=== PATIENT | female | born 1970 | race Caucasian/White ===

== ENCOUNTER → 2017-07-14 11:26 | Outpatient (CLI) | payer BC, SELFPAY ==
[2017-07-14 13:00] LABS: Thyroid Stim Hormone (TSH) 1.43 uIU/mL (0.358-3.74)
== END ==
PROVIDERS: Visit Provider Obstetrics & Gynecology
DX: N93.9 Abnormal uterine and vaginal bleeding, unspecified (principal)
CPT/HCPCS: 36415; 84443

== ENCOUNTER → 2017-07-18 15:29 | Outpatient (CLI) | payer BC, SELFPAY ==
--- NOTE | 2017-07-18 15:34 | US_ITS ---
STUDY: ULTRASOUND TRANSVAGINAL CLINICAL: Female, 47 years old. Bleeding. TECHNIQUE: Transabdominal and Transvaginal COMPARISON: None. FINDINGS: Normal uterine size measuring 10.4 x 6.5 x 4.7 cm in maximal craniocaudal dimension. There are no myometrial masses. Normal endometrial thickness measuring 6 mm. Endometrial echoes are hyperechoic. There are no endometrial masses, and there is no fluid in the endometrial cavity. Nabothian cyst of the uterine cervix. Normal right ovary, measuring 3.2 x 2.4 x 1.5 cm. There are multiple follicles without a dominant cyst. Normal left ovary, measuring 3.3 x 2.1 x 1.4 cm. There are multiple follicles without a dominant cyst. There is no free fluid in the pelvis. Polycystic ovary disease: No. US/Transvaginal Non- IMPRESSION: Within normal limits. Electronically Signed: Deacon Martínez MD at 23:54 EDT , Service support ,
--- NOTE | 2017-07-18 15:34 | US_ITS ---
STUDY: ULTRASOUND TRANSVAGINAL CLINICAL: Female, 47 years old. Bleeding. TECHNIQUE: Transabdominal and Transvaginal COMPARISON: None. FINDINGS: Normal uterine size measuring 10.4 x 6.5 x 4.7 cm in maximal craniocaudal dimension. There are no myometrial masses. Normal endometrial thickness measuring 6 mm. Endometrial echoes are hyperechoic. There are no endometrial masses, and there is no fluid in the endometrial cavity. Nabothian cyst of the uterine cervix. Normal right ovary, measuring 3.2 x 2.4 x 1.5 cm. There are multiple follicles without a dominant cyst. Normal left ovary, measuring 3.3 x 2.1 x 1.4 cm. There are multiple follicles without a dominant cyst. There is no free fluid in the pelvis. Polycystic ovary disease: No. US/Pelvic (Non ) IMPRESSION: Within normal limits. Electronically Signed: Deacon Martínez MD at 23:54 EDT , Service support ,
== END ==
PROVIDERS: Family Provider Student in an Organized Health Care Education/Training Program; PCP Student in an Organized Health Care Education/Training Program; Visit Provider Obstetrics & Gynecology
DX: N93.9 Abnormal uterine and vaginal bleeding, unspecified (principal)
CPT/HCPCS: 76830; 76856; 93976

== ENCOUNTER 2018-07-15 13:19 | Emergency (ER) | payer BC, SELFPAY ==
[2018-07-15 13:20] VITALS: BP 159/90; PULSE 101; PULSE 104; RESP 16; RESP 17; TEMP 36.9; O2SAT 96; O2SAT 98; BMI 21.3
[2018-07-15 13:26] VITALS: O2SAT 97
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
[2018-07-15] MEDS: Acetaminophen 500 MG Tablet 1000 MG PO (14:13)
[2018-07-15 14:50] VITALS: BP 152/98; PULSE 71; RESP 18; O2SAT 99
== END 2018-07-15 14:51 | disposition home or self-care (01) ==
LOC: ED 14:12
PROVIDERS: Emergency Provider Emergency Medicine; Family Provider Student in an Organized Health Care Education/Training Program; PCP Student in an Organized Health Care Education/Training Program
DX: S16.1XXA Strain of muscle, fascia and tendon at neck level, initial encounter (principal); V49.50XA Passenger injured in collision with unspecified motor vehicles in traffic accident, initial encounter; Y93.9 Activity, unspecified; Y92.9 Unspecified place or not applicable
CPT/HCPCS: 70450; 72125; 99282

== ENCOUNTER → 2018-10-23 16:47 | Outpatient (CLI) | payer BC, SELFPAY ==
--- NOTE | 2018-10-23 | EMB_PTH ---
PATIENT: SUNDEEP JEAN-BAPTISTE [facility] U#:[id number] AGE/SX: 54/F ROOM: RE10/23/[address]: ULISES Jalloh : 1970 BED: DIS: SPEC #: [id number] RECD: 10/23/18 16:42 STATUS: CASSI DEEPA #: [id number] FAVIAN: 10/23/18 00:[address]: Kandice Bell NP DEPT: SURGICAL PATHOLOGY RECD BY: Constantine Benavides ENTERED: 10/27/18 08:41 SP TYPE: ENDOM BX/C CHRIS DR: Dr. Luis Martins DO Tissues: Endometrium, NOS Procedures: Surgery Specimen Level IV HEADER OPERATION: Endometrial biopsy PRE-OP DIAGNOSIS: Abnormal uterine bleeding TISSUE SUBMITTED: Endometrial biopsy MICROSCOPIC DIAGNOSIS Endometrial biopsy: Superficial fragments of proliferative endometrium. GENEVA:eros 10/28/18 COMMENT Clinical correlation and appropriate follow up are necessary. MICROSCOPIC DESCRIPTION Slides are reviewed. GROSS DESCRIPTION Received is one container labeled with the patient's name and not further designated. The specimen consists of multiple fragments of hemorrhagic soft tissue mixed with mucoid tissue that in aggregate measure 2.5 x 1.5 x 0.1 cm. The specimen is totally submitted in one cassette. / SJ:eros 10/27/18 TC:4 CPT: 66662
[2018-10-23 14:07] VITALS: BMI 21.3
== END ==
PROVIDERS: Family Provider Student in an Organized Health Care Education/Training Program; PCP Student in an Organized Health Care Education/Training Program; Referring Provider Nurse Practitioner Women's Health; Visit Provider Nurse Practitioner Women's Health
DX: N93.9 Abnormal uterine and vaginal bleeding, unspecified (principal)
CPT/HCPCS: 88305

== ENCOUNTER → 2018-11-04 15:51 | Outpatient (CLI) | payer BC, SELFPAY ==
[2018-10-23 14:07] VITALS: BMI 21.3
--- NOTE | 2018-11-04 15:54 | US_ITS ---
STUDY: ULTRASOUND OF THE FEMALE PELVIS - COMPLETE REASON FOR EXAM: Female, 48 years old. Abnormal uterine bleeding. LMP: The patient is postmenopausal. TECHNIQUE: Transabdominal and Transvaginal TECHNICAL QUALITY: Adequate. COMPARISON: Comparison is made with prior study dated July 18, 2017. FINDINGS: The uterus is anteverted and is in a midline position. The uterus measures 9.1 cm x 4.9 cm x 3.8 cm. There is a Nabothian cyst of the cervix. The endometrium measures 6 mm in thickness, and is hyperechoic. There is no demonstrated endometrial mass. There is no demonstrated myometrial mass. I.U.D. - The patient does not have an I.U.D. The right ovary is visualized. The right ovary measures 3.2 cm x 2.5 cm x 1.9 cm. There is no right ovarian cyst or ovarian mass. There is no visualized right adnexal mass or complex lesion. There is normal arterial and normal venous vascularity. The left ovary is visualized. The left ovary measures 2.4 cm x 2.3 cm x 1.4 cm. There is no left ovarian cyst or ovarian mass. There is no visualized left adnexal mass or complex lesion. There is normal arterial and normal venous vascularity. There is no fluid in the cul-de-sac. The pre void volume of the bladder was 807 ml. Polycystic ovary disease: No. US/Transvaginal Non- IMPRESSION: Mild degree of endometrial thickening at 6 mm. Electronically Signed: Georges Cornejo, at 15:49 EDT , Service support ,
--- NOTE | 2018-11-04 15:54 | US_ITS ---
STUDY: ULTRASOUND OF THE FEMALE PELVIS - COMPLETE REASON FOR EXAM: Female, 48 years old. Abnormal uterine bleeding. LMP: The patient is postmenopausal. TECHNIQUE: Transabdominal and Transvaginal TECHNICAL QUALITY: Adequate. COMPARISON: Comparison is made with prior study dated July 18, 2017. FINDINGS: The uterus is anteverted and is in a midline position. The uterus measures 9.1 cm x 4.9 cm x 3.8 cm. There is a Nabothian cyst of the cervix. The endometrium measures 6 mm in thickness, and is hyperechoic. There is no demonstrated endometrial mass. There is no demonstrated myometrial mass. I.U.D. - The patient does not have an I.U.D. The right ovary is visualized. The right ovary measures 3.2 cm x 2.5 cm x 1.9 cm. There is no right ovarian cyst or ovarian mass. There is no visualized right adnexal mass or complex lesion. There is normal arterial and normal venous vascularity. The left ovary is visualized. The left ovary measures 2.4 cm x 2.3 cm x 1.4 cm. There is no left ovarian cyst or ovarian mass. There is no visualized left adnexal mass or complex lesion. There is normal arterial and normal venous vascularity. There is no fluid in the cul-de-sac. The pre void volume of the bladder was 807 ml. Polycystic ovary disease: No. US/Pelvic (Non ) IMPRESSION: Mild degree of endometrial thickening at 6 mm. Electronically Signed: Georges Cornejo, at 15:49 EDT , Service support ,
== END ==
PROVIDERS: Family Provider Student in an Organized Health Care Education/Training Program; PCP Student in an Organized Health Care Education/Training Program; Referring Provider Nurse Practitioner Women's Health; Visit Provider Nurse Practitioner Women's Health
DX: N95.0 Postmenopausal bleeding (principal)
CPT/HCPCS: 76830; 76856; 93976

== ENCOUNTER → 2019-10-21 16:59 | Outpatient (CLI) | payer BC, SELFPAY ==
[2019-10-21 15:26] VITALS: BMI 21.3
[2019-10-26 15:43] LABS: HPV APTIMA, High Risk Negative (Negative)
== END ==
PROVIDERS: PCP Student in an Organized Health Care Education/Training Program; Referring Provider Obstetrics & Gynecology; Visit Provider Obstetrics & Gynecology
DX: Z12.4 Encounter for screening for malignant neoplasm of cervix (principal)
CPT/HCPCS: 87624; 88175; G0145

== ENCOUNTER → 2020-02-24 12:46 | Outpatient (CLI) | payer BC, SELFPAY ==
[2018-10-23 14:07] VITALS: BMI 21.3
[2019-10-21 15:26] VITALS: BMI 21.3
--- NOTE | 2020-02-24 13:00 | BI_ITS ---
MAMMOGRAPHY - BILATERAL SCREENING REASON FOR EXAM: Female, 49 years old. Routine annual screening examination. PERTINENT HISTORY: Non-contributory. TECHNIQUE: Digital bilateral breast jhon (3D mammographic acquisition) in the CC and MLO projections. 2-D mediolateral oblique (MLO) and craniocaudad (CC) views of both breasts were obtained. CAD: Full Field Digital Mammography with Computer Added Detection was performed. COMPARISON: Comparison is made with prior outside examination dated 02/22/2019. FINDINGS: Breast Composition: The breasts are extremely dense, which lowers the sensitivity of mammography. There are no dominant masses or suspicious calcifications. No other significant abnormalities are identified. There has been no significant change since the prior study. BI/SCREEN MAMM (CAD) W/JHON BILAT IMPRESSION: Stable bilateral screening mammogram. Yearly follow-up mammogram recommended. (A) ASSESSMENT CATEGORY: BIRADS Category 1: Negative. A letter regarding these results will be sent to the patient by the facility within 30 days. Approximately 10% of breast cancers are not detected by mammography. A normal mammogram should not delay biopsy of a clinically suspicious abnormality. [id number] Electronically Signed: Georges Cornejo, at 11:17 EST , Service support ,
== END ==
PROVIDERS: PCP Student in an Organized Health Care Education/Training Program; Referring Provider Obstetrics & Gynecology; Visit Provider Obstetrics & Gynecology
DX: Z12.31 Encounter for screening mammogram for malignant neoplasm of breast (principal)
CPT/HCPCS: 77063; 77067

== ENCOUNTER 2021-03-02 13:02 | Outpatient (CLI) | payer OTHER, SELFPAY ==
--- NOTE | 2021-03-02 13:25 | BI_ITS ---
MAMMOGRAPHY - BILATERAL SCREENING REASON FOR EXAM: Female, 50 years old. Routine annual screening examination. PERTINENT HISTORY: Non-contributory. TECHNIQUE: Digital bilateral breast jhon (3D mammographic acquisition) in the CC and MLO projections. 2-D mediolateral oblique (MLO) and craniocaudad (CC) views of both breasts were obtained. CAD: Full Field Digital Mammography with Computer Added Detection was performed. COMPARISON: Comparison is made with prior study dated 02/24/2020. FINDINGS: Breast Composition: The breasts are heterogeneously dense, which may obscure small masses. There are no dominant masses or suspicious calcifications. No other significant abnormalities are identified. There has been no significant change since the prior study. BI/SCRN MAMM (CAD)W/JHON BILAT IMPRESSION: Stable bilateral screening mammogram. Yearly follow-up mammogram recommended. (A) ASSESSMENT CATEGORY: BIRADS Category 1: Negative. A letter regarding these results will be sent to the patient by the facility within 30 days. Approximately 10% of breast cancers are not detected by mammography. A normal mammogram should not delay biopsy of a clinically suspicious abnormality. [id number] Electronically Signed: Georges Cornejo MD at 14:07 EST , Service support ,
== END 2021-03-02 23:59 | disposition short-term general hospital (02) ==
LOC: OPBI 13:24
PROVIDERS: PCP Student in an Organized Health Care Education/Training Program; Referring Provider Obstetrics & Gynecology; Visit Provider Obstetrics & Gynecology
DX: Z12.31 Encounter for screening mammogram for malignant neoplasm of breast (principal)
CPT/HCPCS: 77063; 77067

== ENCOUNTER → 2022-03-04 | Outpatient (CLI) | payer OTHER, SELFPAY ==
--- NOTE | 2022-03-04 13:45 | BI_ITS ---
MAMMOGRAPHY - BILATERAL SCREENING REASON FOR EXAM: Female, 51 years old. Routine annual screening examination. PERTINENT HISTORY: Non-contributory. TECHNIQUE: Digital bilateral breast jhon (3D mammographic acquisition) in the CC and MLO projections. 2-D mediolateral oblique (MLO) and craniocaudad (CC) views of both breasts were obtained. CAD: Full Field Digital Mammography with Computer Added Detection was performed. COMPARISON: Comparison is made with prior study dated 08/30/2021 and 02/24/2020. FINDINGS: Breast Composition: The breasts are heterogeneously dense, which may obscure small masses. There are no dominant masses or suspicious calcifications. No other significant abnormalities are identified. There has been no significant change since the prior study. BI/SCRN MAMM (CAD)W/JHON BILAT IMPRESSION: Stable bilateral screening mammogram. Yearly follow-up mammogram recommended. (A) ASSESSMENT CATEGORY: BIRADS Category 1: Negative. A letter regarding these results will be sent to the patient by the facility within 30 days. Approximately 10% of breast cancers are not detected by mammography. A normal mammogram should not delay biopsy of a clinically suspicious abnormality. [id number] Electronically Signed: Georges Cornejo MD at 14:57 EST ,
== END | disposition home or self-care (01) ==
LOC: OPBI 13:44
PROVIDERS: PCP Student in an Organized Health Care Education/Training Program; Visit Provider Obstetrics & Gynecology
DX: Z12.31 Encounter for screening mammogram for malignant neoplasm of breast (principal)
CPT/HCPCS: 77063; 77067

== ENCOUNTER → 2023-03-06 | Outpatient (CLI) | payer OTHER, SELFPAY ==
--- NOTE | 2023-03-06 12:32 | BI_ITS ---
MAMMOGRAPHY - BILATERAL SCREENING REASON FOR EXAM: Female, 52 years old. Routine annual screening examination. PERTINENT HISTORY: Non-contributory. TECHNIQUE: Digital bilateral breast jhon (3D mammographic acquisition) in the CC and MLO projections. 2-D mediolateral oblique (MLO) and craniocaudad (CC) views of both breasts were obtained. CAD: Full Field Digital Mammography with Computer Added Detection was performed. COMPARISON: Comparison is made with prior study dated March 04, 2022 and March 02, 2021. FINDINGS: Breast Composition: The breasts are heterogeneously dense, which may obscure small masses. There are no dominant masses or suspicious calcifications. No other significant abnormalities are identified. There has been no significant change since the prior study. BI/SCRN MAMM (CAD)W/JHON BILAT IMPRESSION: Stable bilateral screening mammogram. Yearly follow-up mammogram recommended. (A) ASSESSMENT CATEGORY: BIRADS Category 1: Negative. A letter regarding these results will be sent to the patient by the facility within 30 days. Approximately 10% of breast cancers are not detected by mammography. A normal mammogram should not delay biopsy of a clinically suspicious abnormality. [id number] Electronically Signed: Georges Cornejo MD at 13:17 EST ,
== END | disposition home or self-care (01) ==
LOC: OPBI 12:32
PROVIDERS: PCP Student in an Organized Health Care Education/Training Program; Referring Provider Obstetrics & Gynecology; Visit Provider Obstetrics & Gynecology
DX: Z12.31 Encounter for screening mammogram for malignant neoplasm of breast (principal)
CPT/HCPCS: 77063; 77067

== ENCOUNTER → 2024-03-05 | Outpatient (CLI) | payer BC, SELFPAY ==
[2024-03-10 17:07] LABS: HPV APTIMA, High Risk Negative (Negative)
== END | disposition home or self-care (01) ==
PROVIDERS: PCP Student in an Organized Health Care Education/Training Program; Referring Provider Obstetrics & Gynecology; Visit Provider Obstetrics & Gynecology
DX: Z12.4 Encounter for screening for malignant neoplasm of cervix (principal)
CPT/HCPCS: 87624; 88175; G0145

== ENCOUNTER → 2024-03-08 | Outpatient (CLI) | payer BC, SELFPAY ==
--- NOTE | 2024-03-08 15:51 | BI_ITS ---
MAMMOGRAPHY - BILATERAL SCREENING REASON FOR EXAM: Female, 53 years old. Routine annual screening examination. PERTINENT HISTORY: Non-contributory. TECHNIQUE: Digital bilateral breast jhon (3D mammographic acquisition) in the CC and MLO projections. 2-D mediolateral oblique (MLO) and craniocaudad (CC) views of both breasts were obtained. CAD: Full Field Digital Mammography with Computer Added Detection was performed. COMPARISON: Comparison is made with prior study dated March 06, 2023 and March 04, 2022. FINDINGS: Breast Composition: The breasts are heterogeneously dense, which may obscure small masses. There are no dominant masses or suspicious calcifications. No other significant abnormalities are identified. There has been no significant change since the prior study. BI/SCRN MAMM (CAD)W/JHON BILAT IMPRESSION: Stable bilateral screening mammogram. Yearly follow-up mammogram recommended. (A) ASSESSMENT CATEGORY: BIRADS Category 1: Negative. A letter regarding these results will be sent to the patient by the facility within 30 days. Approximately 10% of breast cancers are not detected by mammography. A normal mammogram should not delay biopsy of a clinically suspicious abnormality. [id number] Electronically Signed: Georges Cornejo MD at 8:21 EST ,
== END | disposition home or self-care (01) ==
PROVIDERS: PCP Student in an Organized Health Care Education/Training Program; Referring Provider Obstetrics & Gynecology; Visit Provider Obstetrics & Gynecology
DX: Z12.31 Encounter for screening mammogram for malignant neoplasm of breast (principal)
CPT/HCPCS: 77063; 77067